=== PATIENT | female | born 1965 | race Caucasian/White ===

== ENCOUNTER 2017-12-12 19:46 | Emergency (ER) | payer OTHER ==
[2017-12-12] MEDS ORDERED: AMOXICILLIN TR/POT CLAVULANATE 500-125 MG TAB PO ONE (21:55)
[2017-12-12] MEDS ORDERED: DIPH/PERTUSS(ACELL)/TETANUS VAC/PF 0.5 ML SYR (>=10YO) IM ONE (21:55)
[2017-12-12] MEDS ORDERED: IBUPROFEN 600 MG TABLET PO ONE (21:56)
[2017-12-12] MEDS ORDERED: ACETAMINOPHEN 325 MG TABLET PO ONE (21:56)
--- NOTE | 2017-12-12 21:58 | ER Document Report ---
ED General - General Chief Complaint: Dog Bite Stated Complaint: POSSIBLE DOG BITE Time Seen by Provider: 12/12/17 20:50 Notes: Patient is a 52-year-old female who presents with a laceration to her left pinky after being bit by her dog. She states that this occurred just prior to arrival. She has a dull, throbbing, aching pain to the area. She has not taken anything for the pain and notes touching the area worsens the pain. No history of similar injuries. Denies any limited range of motion. Denies any additional injuries. Dog's immunizations are up-to-date but the patient states her tetanus is not up-to-date. She has not contacted her general physician regarding today's concerns. TRAVEL OUTSIDE OF THE [place] IN LAST 30 DAYS: No - Related Data Allergies/Adverse Reactions: No Known Allergies Allergy (Unverified 12/12/17 19:52) Past Medical History - General Information source: Patient - Social History Smoking Status: Never Smoker Frequency of alcohol use: Occasional Drug Abuse: None Lives with: Family Family History: Reviewed & Not Pertinent Patient has suicidal ideation: No Patient has homicidal ideation: No Renal/ Medical History: Denies: Hx Peritoneal Dialysis Past Surgical History: Reports: Hx Cholecystectomy, Hx Orthopedic Surgery - left hip, Hx Tubal Ligation Review of Systems - Review of Systems Notes: Constitutional: Negative for fever. Eyes: Negative for visual changes. ENT: Negative for facial injury Cardiovascular: Negative for chest injury. Respiratory: Negative for shortness of breath. Gastrointestinal: Negative for abdominal injury. Genitourinary: Negative for genital injury Musculoskeletal: Positive for left hand injury Skin: Positive for laceration/abrasions. Neurological: Negative for head injury. Physical Exam - Vital signs Vitals: Temp Pulse Resp BP Pulse Ox 98.9 F 78 18 128/85 H 100 12/12/17 19:55 12/12/17 19:55 12/12/17 19:55 12/12/17 19:55 12/12/17 19:55 Interpretation: Normal Notes: PHYSICAL EXAMINATION: GENERAL: Well-appearing, well-nourished and in no acute distress. HEAD: Atraumatic, normocephalic. EYES: Pupils equal round and reactive to light, extraocular movements intact, sclera anicteric, conjunctiva are normal. ENT: nares patent, oropharynx clear without exudates. Moist mucous membranes. NECK: Normal range of motion, supple without lymphadenopathy LUNGS: Breath sounds clear to auscultation bilaterally and equal. No wheezes rales or rhonchi. HEART: Regular rate and rhythm without murmurs ABDOMEN: Soft, nontender, normoactive bowel sounds. No guarding, no rebound. No masses appreciated. EXTREMITIES: Normal range of motion, no pitting or edema. No cyanosis. Full flexion extension at the DIP, PIP and MCP of the left fifth finger. NEUROLOGICAL: No focal neurological deficits. Moves all extremities spontaneously and on command. PSYCH: Normal mood, normal affect. SKIN: Warm, Dry, normal turgor, laceration noted over the volar aspect of the left fifth finger without surrounding macerated tissue Course - Re-evaluation Re-evalutation: 12/12/17 21:58 Patient presents with a bite to the volar surface of the fifth finger on the left hand from her dog. Dog's immunizations are up-to-date. The patient does require tetanus update. Wound was cleaned and irrigated, dressed but no sutures placed due to the source of the laceration being a dog bite. Patient has been started on Augmentin prophylaxis. At this time will discharge with return precautions and follow-up recommendations. Verbal discharge instructions given a the bedside and opportunity for questions given. Medication warnings reviewed. Patient is in agreement with this plan and has verbalized understanding of return precautions and the need for primary care follow-up in the next 24-72 hours. - Vital Signs Vital signs: Temp Pulse Resp BP Pulse Ox 98.9 F 76 16 104/66 97 12/12/17 19:55 12/12/17 22:16 12/12/17 22:16 12/12/17 22:16 12/12/17 22:16 Discharge - Discharge Clinical Impression: Dog bite of left hand Qualifiers: Encounter type: initial encounter Qualified Code(s): S61.452A - Open bite of left hand, initial encounter Condition: Good Disposition: HOME, SELF-CARE Additional Instructions: Please monitor very closely for any signs of infection from your dog bite including spreading redness from the area, pus from the wound, or worsening pain. Clean the area twice daily with soap and water and then apply topical antibiotic ointment. Please take all the antibiotics that you were prescribed until they are gone. Follow-up with your primary care physician as needed. Prescriptions: Amox Tr/Potassium Clavulanate [Augmentin 185-125 Tablet] 1 tab PO BID 10 Days tablet
[2017-12-12 22:18] VITALS: BP 104/66
== END 2017-12-12 22:40 | disposition home or self-care (01) ==
LOC: ER 19:46
DX: S61.257A Open bite of left little finger without damage to nail, initial encounter (principal); W54.0XXA Bitten by dog, initial encounter; Z23 Encounter for immunization
CPT/HCPCS: 90471; 90715; 99283